=== PATIENT | male | born 1980 | race Caucasian/White ===

== ENCOUNTER 2018-03-08 14:30 | Emergency (ER) | payer SELFPAY ==
[2018-03-09] MEDS ORDERED: NACL 0.9% 1000 ML 1,000 ML IV ONE (01:32)
--- NOTE | 2018-03-09 01:52 | Emergency Department Report ---
ED Chest Pain HPI - General Chief Complaint: Chest Pain Stated Complaint: SHAKEY/TIRED FEELING Time Seen by Provider: 03/09/18 01:48 Source: patient Mode of arrival: Ambulatory Limitations: Language Barrier - History of Present Illness Initial Comments: Previously healthy 38-year-old man presents with chest pain today, which we reports to the nurse as being in his chest, radiating to his arms and his jaw. Patient was not in waiting room at first check earlier in the evening, but comes back, because he is scared, reporting that he been working in the sun all day today, but also earlier for the week, gets numb in his fingers, lightheaded , feels his heart is pounding, and is not sure what is going on, but is very concerned about his heart. Past medical history is significant for hypertension, for which he takes medication, but he has no prior history of coronary artery disease, myocardial infarction, or angina. Otherwise he is in good health, but is also concerned a little bit about his blood sugar. He was able work today, but was bothered by numbness, as well as some recurrent discomfort and sent to palpitations. - Related Data Previous Rx's Medication Instructions Recorded Last Taken Type Zolpidem [Ambien] 5 mg PO QHS PRN #15 tablet 03/09/18 Unknown Rx Allergies Allergy/AdvReac Type Severity Reaction Status Date / Time No Known Allergies Allergy Verified 03/09/18 02:01 Heart Score - HEART Score History: Slightly suspicious EKG: Normal Age: < 45 Risk factors: No known risk factors Troponin: < normal limit HEART Score: 0 ED Review of Systems ROS: Stated complaint: SHAKEY/TIRED FEELING Other details as noted in HPI ED Past Medical Hx - Past Medical History Hx Hypertension: Yes - Social History Smoking Status: Unknown if ever smoked - Medications Home Medications: Home Medications Medication Instructions Recorded Confirmed Last Taken Type Zolpidem [Ambien] 5 mg PO QHS PRN #15 tablet 03/09/18 Unknown Rx ED Physical Exam - General Limitations: Language Barrier General appearance: alert, in no apparent distress - Head Head exam: Present: atraumatic, normocephalic - Eye Eye exam: Present: normal appearance - ENT ENT exam: Present: mucous membranes moist - Neck Neck exam: Present: normal inspection - Respiratory Respiratory exam: Present: normal lung sounds bilaterally. Absent: respiratory distress - Cardiovascular Cardiovascular Exam: Present: regular rate, normal rhythm. Absent: systolic murmur, diastolic murmur, rubs, gallop - GI/Abdominal GI/Abdominal exam: Present: soft, normal bowel sounds - Rectal Rectal exam: Present: deferred - Extremities Exam Extremities exam: Present: normal inspection - Back Exam Back exam: Present: normal inspection - Neurological Exam Neurological exam: Present: alert, oriented X3 - Psychiatric Psychiatric exam: Present: normal affect, normal mood - Skin Skin exam: Present: warm, dry, intact, normal color. Absent: rash ED Course Vital Signs 03/08/18 03/09/18 03/09/18 18:50 00:58 01:00 Temperature 36.8 C Pulse Rate 90 72 71 Respiratory 16 22 21 Rate Blood Pressure 166/86 178/95 O2 Sat by Pulse 100 100 100 Oximetry 03/09/18 03/09/18 03/09/18 01:15 01:18 01:30 Temperature 36.7 C Pulse Rate 70 68 Respiratory 23 23 Rate Blood Pressure 161/94 157/85 O2 Sat by Pulse 100 100 Oximetry 03/09/18 03/09/18 03/09/18 01:45 02:00 02:15 Temperature Pulse Rate 72 79 64 Respiratory 21 13 19 Rate Blood Pressure 157/93 166/79 157/78 O2 Sat by Pulse 100 100 100 Oximetry 03/09/18 03/09/18 03/09/18 02:30 02:45 03:00 Temperature Pulse Rate 70 65 63 Respiratory 22 13 21 Rate Blood Pressure 157/78 146/86 131/76 O2 Sat by Pulse Oximetry 03/09/18 03/09/18 03:15 03:30 Temperature Pulse Rate 66 67 Respiratory 19 15 Rate Blood Pressure 139/81 127/73 O2 Sat by Pulse Oximetry ED Medical Decision Making - Lab Data Result diagrams: 03/09/18 02:10 03/09/18 02:10 Critical Care Time: No Critical care attestation.: If time is entered above; I have spent that time in minutes in the direct care of this critically ill patient, excluding procedure time. ED Disposition Clinical Impression: Anxiety reaction, Dehydration after exertion Disposition: DC-01 TO HOME OR SELFCARE Is pt being admited?: No Does the pt Need Aspirin: No Condition: Stable Instructions: Dehydration (ED), Anxiety (ED) Prescriptions: Zolpidem [Ambien] 5 mg PO QHS PRN #15 tablet PRN Reason: Sleep Referrals: GERI SANCHEZ MD [Primary Care Provider] - 3-5 Days Forms: Work/School Release Form(ED) Time of Disposition: 04:06
[2018-03-09] MEDS ORDERED: ATIVAN PO ONE ×2 (02:12→04:07)
[2018-03-09 02:36] LABS: Basophils # (Auto) 0.1 K/mm3 (0.0-0.1); Basophils % (Auto) 0.5 % (0.0-1.8); Eosinophils # (Auto) 0.2 K/mm3 (0.0-0.4); Hematocrit 44.8 % (35.5-45.6); Hemoglobin 15.2 gm/dl (11.8-15.2); Lymphocytes # (Auto) 3.6 K/mm3 (1.2-5.4); Lymphocytes % (Auto) 38.3 % (13.4-35.0); Mean Corpuscular HGB Conc 34 % (32-34); Mean Corpuscular Hemoglobin 29 pg (28-32); Mean Corpuscular Volume 86 fl (84-94); Monocytes # (Auto) 1.2 K/mm3 (0.0-0.8); Monocytes % (Auto) 12.3 % (0.0-7.3); Platelet Count 317 K/mm3 (140-440); Red Blood Count 5.22 M/mm3 (3.65-5.03); Red Cell Distribution Width 13.8 % (13.2-15.2)
--- NOTE | 2018-03-09 02:36 | XRay Report ---
FINAL REPORT PROCEDURE: XR CHEST 1V AP TECHNIQUE: Chest radiograph anteroposterior view. CPT 56102 HISTORY: Chest Pain COMPARISON: No prior studies are available for comparison. FINDINGS: Heart: Normal. Mediastinum/Vessels: Normal. Lungs/Pleural space: Normal. Bony thorax: No acute osseous abnormality. Life support devices: None. IMPRESSION: No acute cardiopulmonary abnormality.
[2018-03-09 02:47] LABS: INR 0.97 (0.87-1.13)
[2018-03-09 02:55] LABS: Alanine Aminotransferase 56 units/L (7-56); Albumin 4.9 g/dL (3.9-5); BUN/Creatinine Ratio 19; Blood Urea Nitrogen 13 mg/dL (9-20); Calcium 9.1 mg/dL (8.4-10.2); Hemolysis Index 4
[2018-03-09 04:22] VITALS: BP 131/74
== END 2018-03-09 04:46 | disposition home or self-care (01) ==
LOC: EDBD 14:30 → ED 14:30
DX: R07.9 Chest pain, unspecified (principal); F41.9 Anxiety disorder, unspecified; R42 Dizziness and giddiness; E86.0 Dehydration; I10 Essential (primary) hypertension
CPT/HCPCS: 36415; 71045; 80053; 82550; 84484; 85025; 85610; 93005; 93010; 96360; 99284; J7030; 96361